=== PATIENT | male | born 1960 | race Caucasian/White ===

== ENCOUNTER 2016-10-09 12:04 | Day surgery (SDC) | payer BC ==
[~2016-10-09] VITALS: Ht 165.1 cm; Wt 60.7 kg
[2016-10-09] MEDS ORDERED: losartan (13:51)
[2016-10-09] MEDS ORDERED: metformin (13:51)
[2016-10-09] MEDS ORDERED: aspirin (13:51)
[2016-10-09 13:53] VITALS: Ht 165.1 cm; Wt 60.7 kg
[2016-10-09 16:10] VITALS: BP 105/59; PULSE 58; RESP 19
[2016-10-09] MEDS ORDERED: PROPOFOL 40 ML ONE (16:12)
[2016-10-09 16:38] VITALS: BP 120/75; RESP 20
--- NOTE | 2016-10-09 16:45 | GILP ---
DATE OF PROCEDURE: 10/09/2016 PROCEDURE: Colonoscopy to cecum. BRIEF HISTORY AND INDICATIONS: The patient is being evaluated for colorectal cancer screening. PREMEDICATION: Monitored anesthesia care by anesthesiologist. SURGEON: Kristen Smith INSTRUMENT USED: Olympus colonoscope. PREPARATION: This was adequate. TECHNIQUE: After informed consent, with the patient/relatives understanding the procedure, its indic ations potential risks and complications, including but not limited to: allergic reaction, bleeding, perforation, infection, missed lesions and after all pertinent questions were answered to the patie nt's satisfaction, the patient/relatives signed the witnessed informed consent. Following this, premedication was administered slowly IV push by under careful cardiovascular and re spiratory monitoring with pulse oximetry, automatic blood pressure and nurse monitoring. Once the sedativ e effect was achieved, the patient was placed in the left lateral decubitus position, digital rectal examination was performed. The colonoscope was then introduced and advanced under visual control th roughout all segments of the colon including: the rectum, sigmoid, descending colon, splenic flexure , transverse colon, hepatic flexure, ascending colon and finally reaching the cecum which was clearl y identified by transillumination, finger indentation and the ileocecal valve. Careful examination o f the mucosa of the lower gastrointestinal tract both on insertion as well as withdrawal of the inst rument disclosed the following findings: Rectal Examination: No evidence of perirectal disease, no masses. Colonic Mucosa: The colonic mucosa is unremarkable throughout. The ileocecal valve was clearly swetha ntified and appears unremarkable. The instrument was then withdrawn. On withdrawal of the instrument, moderate sized internal hemorrh oids are noted. IMPRESSION: 1. Moderate size internal hemorrhoids. 2. Otherwise normal colonoscopy to cecum. PLAN: The patient will be followed up as an outpatient. Annual Hemoccult stool testing is recommen ded and screening colonoscopy in 10 years is recommended. Dictated By: LIZBET GEORGES MS/GEOVANNA Conf#: [id number] DID#: [id number]
== END 2016-10-09 17:02 | disposition home or self-care (01) ==
LOC: GIL 12:04
PROVIDERS: ATTEND Internal Medicine Gastroenterology
DX: Z12.11 Encounter for screening for malignant neoplasm of colon (principal); K64.8 Other hemorrhoids; E78.5 Hyperlipidemia, unspecified; E11.9 Type 2 diabetes mellitus without complications; I10 Essential (primary) hypertension
CPT/HCPCS: 45378; Z7610